=== PATIENT | female | born 1965 | race Caucasian/White ===

== ENCOUNTER 2016-09-28 12:27 | Emergency (ER) | payer OTHER ==
[~2016-09-28] VITALS: Ht 165.1 cm; Wt 83.9 kg
[~2016-09-28 12:27] MED LIST: BUPR100T6 PO; ESTR1TAB15 PO; SITA1TBM7 PO
[2016-09-28 12:30] VITALS: BP 177/84
--- NOTE | 2016-09-28 12:46 | PHYS DOC ---
Past Medical History Past Medical History: Diabetes-Type II, GERD, Hypertension Past Surgical History: , Hysterectomy Alcohol Use: Occasionally Drug Use: None Adult General Chief Complaint Chief Complaint: MECHANICAL FALL HPI HPI Patient is a 51 year old female presents to the emergency department with a history of bilateral ankle pain. Patient states she fell in a parking lot yesterday as she was walking, she states there was a dip in the concrete and she fell crossed legged. She has pain to bilateral medial and lateral ankles with swelling and bruising noted. She denies any further pain and discomfort. Patient states she took 800 mg of Ibuprofen without relief. Review of Systems Review of Systems Constitutional: Denies fever or chills [] Eyes: Denies change in visual acuity, redness, or eye pain [] HENT: Denies nasal congestion or sore throat [] Respiratory: Denies cough or shortness of breath [] Cardiovascular: No additional information not addressed in HPI [] GI: Denies abdominal pain, nausea, vomiting, bloody stools or diarrhea [] : Denies dysuria or hematuria [] Musculoskeletal: Denies back pain. Bilateral ankle pain and swelling Integument: Denies rash or skin lesions [] Neurologic: Denies headache, focal weakness or sensory changes [] Endocrine: Denies polyuria or polydipsia [] Current Medications Current Medications Current Medications Medications (Trade) Dose Ordered Sig/Robin Start Time Stop Time Status Last Admin Dose Admin Acetaminophen/ Hydrocodone Bitart (Lortab 5/325) 2 tab 1X ONCE 09/28/16 13:15 09/28/16 13:16 DC 09/28/16 13:06 2 TAB Allergies Allergies Allergies Coded Allergies Type Severity Reaction Last Updated Verified Sulfa (Sulfonamide Antibiotics) Allergy Intermediate severe rash 08/30/13 Yes amoxicillin trihydrate Allergy Intermediate severe rash 08/30/13 Yes erythromycin base Allergy Intermediate rash 08/30/13 Yes potassium clavulanate Allergy Intermediate severe rash 08/30/13 Yes Physical Exam Physical Exam Constitutional: Well developed, well nourished, no acute distress, non-toxic appearance. [] HENT: Normocephalic, atraumatic, bilateral external ears normal, oropharynx moist, no oral exudates, nose normal. [] Eyes: PERRLA, EOMI, conjunctiva normal, no discharge. [] Neck: Normal range of motion, no tenderness, supple, no stridor. [] Cardiovascular:Heart rate regular rhythm, no murmur [] Lungs & Thorax: Bilateral breath sounds clear to auscultation [] Skin: Warm, dry, no erythema, no rash. [] Back: No tenderness Extremities: Bilateral medial and lateral ankle tenderness, no cyanosis, no clubbing, ROM intact, no edema. Swelling and bruising noted to the ankle. Neurologic: Alert and oriented X 3, normal motor function, normal sensory function, no focal deficits noted. [] Psychologic: Affect normal, judgement normal, mood normal. [] Current Patient Data Vital Signs Vital Signs Date Time Temp Pulse Resp B/P (MAP) Pulse Ox O2 Delivery O2 Flow Rate FiO2 09/28/16 13:06 18 97 Room Air 09/28/16 12:30 98.8 73 98.8 EKG EKG [] Radiology/Procedures Radiology/Procedures [][facility] [address] [place] [address] IMAGING REPORT Signed PATIENT: WOODROW SALAS ACCOUNT: [id number] : 1965 LOCATION: ER AGE: 51 SEX: F EXAM STATUS: REG ER ORD. PHYSICIAN: PIOTR MARS APRN REASON: fell in parking lot pain, swelling bruising to lateral and medial ankles PROCEDURE: ANKLE BILAT 3V Bilateral ankles, 6 views, 09/28/2016: History: Fall, pain There is a nondisplaced fracture of the distal left fibula involving the lateral malleolus. There is moderate overlying soft tissue swelling. A small calcific density at the tip of the lateral malleolus is compatible with an additional small avulsion fracture fragment, of indeterminate age. There is mild widening of the distance between the left medial malleolus and medial aspect of the talus suggesting ligamentous injury at that level. No kevin dislocation is evident. There is a well-defined calcific density at the tip of the right medial malleolus compatible with old trauma. There is a small spur along the anterior aspect of the right ankle joint. No acute right ankle fracture or dislocation is identified. There is moderate diffuse soft tissue swelling about the right ankle. IMPRESSION: 1. Nondisplaced fracture of the distal left fibula. 2. Probable mild ligamentous injury medially on the left. 3. No acute bony abnormality is identified on the right. DICTATED and SIGNED BY: ZEKE GAY MD DATE: 09/28/16 5580 CC: PIOTR MARS APRN; NON,STAFF; UNKNOWN PCP NAME ~ Course & Med Decision Making Course & Med Decision Making Pertinent Labs and Imaging studies reviewed. (See chart for details) Patient was provided with 2 hydrocodone's here in the emergency department. Patient was noted to have a left fibula fracture that is nondisplaced. Right ankle appears to have no bony abnormality. Patient will be placed in a posterior short leg splint on the left ankle. She'll be provided with an Charles wrap and an Air-Stirrup splint on the right. Patient will be provided with a prescription for hydrocodone for severe pain and discomfort. She was recommended to use ibuprofen 800 mg every 8 hours to help with inflammation and swelling. Also recommended ice packs on 20 minutes off 20 minutes several times a day and elevation as much as possible. Patient will be provided with orthopedic Dr. Syed to follow up within the next week. Signs and symptoms to return back to the emergency department as been provided. Patient was provided with a walker with no weightbearing to the left foot. [] Dragon Disclaimer Dragon Disclaimer This electronic medical record was generated, in whole or in part, using a voice recognition dictation system. Departure Departure Impression: Primary Impression: Right ankle sprain Additional Impression: Closed left ankle fracture Disposition: 01 HOME, SELF-CARE Condition: STABLE Referrals: JOJO BERNSTEIN MD (PCP) ANNELISE SYED MD Patient Instructions: Ankle Fracture, [id number], Ankle Sprain, [id number] Additional Instructions: Home to rest. Medications as prescribed. Ibuprofen 800 mg every 8 hours with food. Stop taking few develop an upset stomach. Keep your splint in place in her left ankle. Ice packs elevation as much as possible. Keep the Charles wrap on your right ankle for the next 5-7 days, wear the Air- Stirrup splint for the next 7-10 days. Ice packs on both ankles on 20 minutes off 20 minutes several times a day. Elevation as much as possible. No weightbearing on the left ankle. Follow-up with orthopedic within the next week. Return back to the emergency department for signs and symptoms of become worse. Scripts Hydrocodone/Apap 5-325 (NORCO 5-325 TABLET) 1 Each Tablet 1 TAB PO PRN Q6HRS Y for PAIN, #20 TAB 0 Refills Prov: PIOTR MARS APRN 09/28/16 Splinting Splinting : Location: left ankle Hand-Made Type: orthoglass (posterior short leg splint) Pre-Proc Neuro Vasc Exam: normal Post-Proc Neuro Vasc Exam: normal Problem Qualifiers PIOTR MARS APRN Sep 28, 2016 12:46
[2016-09-28] MEDS ORDERED: HYDROcodone/APAP 5/325MG 1 TAB TABLET PO ONE (13:15)
--- NOTE | 2016-09-28 13:17 | RAD ---
Bilateral ankles, 6 views, 09/28/2016: History: Fall, pain There is a nondisplaced fracture of the distal left fibula involving the lateral malleolus. There is moderate overlying soft tissue swelling. A small calcific density at the tip of the lateral malleolus is compatible with an additional small avulsion fracture fragment, of indeterminate age. There is mild widening of the distance between the left medial malleolus and medial aspect of the talus suggesting ligamentous injury at that level. No kevin dislocation is evident. There is a well-defined calcific density at the tip of the right medial malleolus compatible with old trauma. There is a small spur along the anterior aspect of the right ankle joint. No acute right ankle fracture or dislocation is identified. There is moderate diffuse soft tissue swelling about the right ankle. IMPRESSION: 1. Nondisplaced fracture of the distal left fibula. 2. Probable mild ligamentous injury medially on the left. 3. No acute bony abnormality is identified on the right.
[2016-09-28] MEDS ORDERED: HYDR-971 PO (13:37)
== END 2016-09-28 14:27 | disposition home or self-care (01) ==
LOC: ER 12:27
DX: S82.892A Other fracture of left lower leg, initial encounter for closed fracture (principal); S93.401A Sprain of unspecified ligament of right ankle, initial encounter; E11.9 Type 2 diabetes mellitus without complications; I10 Essential (primary) hypertension; K21.9 Gastro-esophageal reflux disease without esophagitis; Z90.710 Acquired absence of both cervix and uterus; Z98.890 Other specified postprocedural states; Z88.2 Allergy status to sulfonamides; Z88.1 Allergy status to other antibiotic agents; Z88.8 Allergy status to other drugs, medicaments and biological substances; W18.39XA Other fall on same level, initial encounter; Y93.01 Activity, walking, marching and hiking; Y99.8 Other external cause status; Y92.481 Parking lot as the place of occurrence of the external cause
CPT/HCPCS: 29515; 73610; 82962; 99284-25